=== PATIENT | female | born 1940 | race Caucasian/White ===

== ENCOUNTER 2020-05-19 11:42 | Outpatient (CLI) | payer MEDICARE, MEDICAID ==
[2020-05-19 12:31] LABS: Anion Gap 16 mmol/L (10-20); BUN (Urea Nitrogen) 17 mg/dL (9.8-20.1); Calc. Creatinine Clearance 0 mL/min (70-130); Calcium 8.6 mg/dL (7.8-10.44); Carbon Dioxide 25 mmol/L (23-31); Chloride 101 mmol/L (98-107); Estimated GFR-MDRD 86; Glucose 120 mg/dL (83-110); Potassium 4.4 mmol/L (3.5-5.1); Sodium 138 mmol/L (136-145)
== END 2020-05-19 11:43 | disposition home or self-care (01) ==
LOC: MADLABSP 11:42
DX: I16.0 Hypertensive urgency (principal); E22.2 Syndrome of inappropriate secretion of antidiuretic hormone; N39.0 Urinary tract infection, site not specified
CPT/HCPCS: 80048